=== PATIENT | male | born 1975 | race Caucasian/White ===

== ENCOUNTER 2022-06-28 08:37 | Outpatient (CLI) | payer OTHER, SELFPAY | END 2022-06-28 08:38 | disposition home or self-care (01) | PROVIDERS: PCP Internal Medicine; Visit Provider Internal Medicine | DX: Z00.00 Encounter for general adult medical examination without abnormal findings (principal); I10 Essential (primary) hypertension; Z13.6 Encounter for screening for cardiovascular disorders | CPT/HCPCS: 80053; 80061 ==

== ENCOUNTER 2022-08-17 12:08 | Outpatient (CLI) | payer OTHER, SELFPAY | END 2022-08-17 12:09 | disposition home or self-care (01) | LOC: OP CLINIC 12:09 | PROVIDERS: PCP Internal Medicine; Visit Provider Surgery | DX: Z12.11 Encounter for screening for malignant neoplasm of colon (principal); K63.5 Polyp of colon; K57.30 Diverticulosis of large intestine without perforation or abscess without bleeding | CPT/HCPCS: 45385; 88305; 99153; J1200; J2250; J3010 ==

== ENCOUNTER 2023-02-12 15:13 | Outpatient (CLI) | payer OTHER, SELFPAY | END 2023-02-12 15:14 | disposition home or self-care (01) | LOC: NFLDUCREF 15:14 | PROVIDERS: PCP Internal Medicine; Visit Provider Registered Nurse | DX: R10.9 Unspecified abdominal pain (principal) | CPT/HCPCS: 87086 ==

== ENCOUNTER 2023-02-12 16:11 | Inpatient (IN) | payer OTHER, SELFPAY ==
[2023-02-12 16:40] VITALS: BP 146/77; PULSE 109; RESP 22; TEMP 38.5; O2SAT 98; BMI 27.2
--- NOTE | 2023-02-12 17:19 | CRLHL7_ITS ---
For Patients: As a result of the Century Cures Act, medical imaging exams and procedure reports are released immediately into your electronic medical record. You may view this report before your referring provider. If you have questions, please contact your health care provider. INDICATION: Fever and lower abdominal pain TECHNIQUE: Axial images were obtained from the diaphragm to the pubic symphysis. Reformats were obtained in the coronal and sagittal plane. IV Contrast: 95 cc Isovue 370 Oral Contrast: None COMPARISON: None. FINDINGS: Lower chest: Unremarkable. Liver: Unremarkable. Normal in size and attenuation. No masses. Gallbladder and bile ducts: Unremarkable. No stones or inflammation. No biliary dilatation. Spleen: Unremarkable. Normal in size without mass. Pancreas: Unremarkable. No mass or inflammation. Adrenal glands: Unremarkable. No nodules. Kidneys: Unremarkable. No masses, stones, or hydronephrosis. Vasculature: Unremarkable. GI tract: The stomach is unremarkable. There are no dilated loops of large or small intestine. Appendix unremarkable. Underlying colonic diverticulosis with prominent inflammation adjacent to a proximal sigmoid diverticulum. Adjacent fascial thickening and trace free fluid. Trace bubbles of air within the sigmoid mesentery which appear to be just external to the inflamed diverticulum (series 2, image 127; series 4, image 52). No abscess seen. Pelvis: Unremarkable. Bones: Unremarkable for age. IMPRESSION: Acute diverticulitis proximal sigmoid colon. Small bubbles of air which appear to be extraluminal suggesting microperforation without evidence of abscess. Please note that all CT scans at this facility use dose modulation, iterative reconstruction, and/or weight-based dosing when appropriate to reduce radiation dose to as low as reasonably achievable. Dictated by Bonilla Chun MD @ 02/12/2023 6:28:00 PM (Electronically Signed)
[2023-02-12 17:56] LABS: Lactate Sepsis w/Reflex* 1.2 mmol/L (0.5-1.9)
[2023-02-12 18:15] LABS: Albumin* 4.5 g/dL (3.3-5.0); Chloride* 96 mmol/L (96-114)
[2023-02-12 18:16] LABS: Potassium* 3.9 mmol/L (3.6-5.1); Sodium* 133 mmol/L (135-149)
[2023-02-12 18:18] LABS: Creatinine* 0.9 mg/dL (0.5-1.5); Est. Creatinine Clearance* 110.39; Estimated Glomerular Filt Rate 107 ml/min
[2023-02-12 18:19] LABS: Alanine Aminotransferase* 27 U/L (4-50); Alkaline Phosphatase* 106 U/L (40-150); Anion Gap 11 mEq/L (7-15); Aspartate Amino Transferase* 35 U/L (12-35); Bilirubin Total* 1.4 mg/dL (0.1-1.5); Blood Urea Nitrogen* 16 mg/dL (5-24); Calcium* 9.4 mg/dL (8.4-10.6); Carbon Dioxide* 26 mmol/L (20-32); Glucose* 104 mg/dL (60-115); Total Protein* 7.8 g/dL (6.0-8.3)
[2023-02-12 18:22] LABS: C Reactive Protein* 5.7 mg/dL (0.5-1.0)
[2023-02-12] MEDS: 0.9 % SODIUM CHLORIDE 1000 ml 1,000 ML IV (18:25)
[2023-02-12 18:37] LABS: PCR FLU A Negative PCR FLU A (Negative); PCR FLU B Negative PCR FLU B (Negative); PCR RSV Negative PCR RSV (Negative)
[2023-02-12 18:39] LABS: SARS PCR* Negative SARS-CoV-2 (Negative)
[2023-02-12] MEDS: PIPERACILLIN/TAZOBACTAM 3.375 GM in 0.9 % SODIUM CHLORIDE Mini-bag 100 ML IVPB (19:03)
--- NOTE | 2023-02-12 19:16 | ED_ITS ---
HPI - General Adult General Date Seen: 02/12/23 Chief complaint: Abdominal Pain Stated complaint: Needs imaging sent from Time Seen by Provider: 02/12/23 17:14 Source: patient, RN notes reviewed and old records reviewed Mode of arrival: ambulatory Limitations: no limitations History of Present Illness HPI narrative: Patient is a 47-year-old generally healthy male who presents for evaluation of abdominal pain and fever. He was not actually aware of a fever, had gone to urgent care because of lower abdominal pain which started yesterday and has been gradually worsening. He was noted to be febrile at Urgent Care, white blood cell count was 12, UA showed a few red blood cells but was otherwise negative. He did have a little bit of dysuria yesterday although that is been improved today. He has not had cough for upper respiratory symptoms. He has had some nausea but no vomiting or diarrhea. He had a bowel movement on Sunday Related Data Home Medications Medication Instructions Recorded Confirmed fluticasone propionate 50 spray intranasal 06/28/22 06/28/22 mcg/actuation nasal spray,suspension Previous Rx's Medication Instructions Recorded albuterol sulfate 90 mcg/actuation 2 puff inhalation Q6-8H PRN Asthma 06/28/22 aerosol inhaler #8.5 grams fluticasone 250 mcg-salmeterol 50 1 inh inhalation BID SOB #60 ea 01/15/23 mcg/dose blistr powdr for inhalation (Advair Diskus) Allergies Allergy/AdvReac Type Severity Reaction Status Date / Time No Known Drug Allergies Allergy Verified 02/12/23 14:42 [facility] Surgical History History of vasectomy (02/15/21) ?Z98.52 - Vasectomy status (ICD-10) History of right inguinal hernia repair (2008) ?Z98.890 - Other specified postprocedural states (ICD-10) ?Z87.19 - Personal history of other diseases of the digestive system (ICD-10) Family History Mother Macular degeneration Daughter Seizure disorder Social History Narrative: to Tanvi. 3 children. Works at [employer]. Smoking Status: Former smoker Do you use any of these nicotine containing products: None Second hand tobacco smoke exposure: No How often do you have a drink containing alcohol: 2-4 times a month How often do you have six or more drinks on one occasion: Monthly AUDIT-C Alcohol total score: 4 Non-prescribed substance use: denies use Little interest or pleasure in doing things: not at all Feeling down, depressed, or hopeless: not at all service: No Exam Const: Vital Signs, click to edit/add: Vital Signs - 24 hr 02/12/23 16:40 Temperature 101.3 F H Pulse Rate [Pulse Oximeter] 109 H Respiratory Rate 22 Blood Pressure [Ri ght Upper Arm] 146/77 H Pulse Oximetry 98 Oxygen Delivery Me thod Room Air Course Vital Signs Vital signs: Initial Vital Signs Temperature 101.3 F H 02/12/23 16:40 Temperature Source Oral 02/12/23 16:40 Pulse Rate 109 H 02/12/23 16:40 Pulse Rhythm Regular 02/12/23 16:40 Respiratory Rate 22 02/12/23 16:40 Blood Pressure 146/77 H 02/12/23 16:40 Blood Pressure Mean 100 02/12/23 16:40 Blood Pressure Position Sitting 02/12/23 16:40 Pulse Oximetry 98 02/12/23 16:40 Oxygen Delivery Method Room Air 02/12/23 16:40 Vital Signs Temperature 101.3 F H 02/12/23 16:40 Pulse Rate 109 H 02/12/23 16:40 Respiratory Rate 22 02/12/23 16:40 Blood Pressure 146/77 H 02/12/23 16:40 Pulse Oximetry 98 02/12/23 16:40 Oxygen Delivery Method Room Air 02/12/23 16:40 Temperature 101.3 F H 02/12/23 16:40 Pulse Rate 109 H 02/12/23 16:40 Respiratory Rate 22 02/12/23 16:40 Blood Pressure 146/77 H 02/12/23 16:40 Pulse Oximetry 98 02/12/23 16:40 Oxygen Delivery Method Room Air 02/12/23 16:40 Medical Decision Making Lab Data Labs: Lab Results 02/12/23 Range/Units 17:41 Sodium 133 L (135-149) mmol/L Potassium 3.9 (3.6-5.1) mmol/L Chloride 96 (96-114) mmol/L Carbon Dioxide 26 (20-32) mmol/L Anion Gap 11 (7-15) mEq/L BUN 16 (5-24) mg/dL Creatinine 0.9 (0.5-1.5) mg/dL Estimated Creat Clear 110.39 Estimated GFR 107 ml/min Glucose 104 (60-115) mg/dL Lactate 1.2 (0.5-1.9) mmol/L Calcium 9.4 (8.4-10.6) mg/dL Total Bilirubin 1.4 (0.1-1.5) mg/dL Direct Bilirubin 0.0 (0.0-0.5) mg/dL AST 35 (12-35) U/L ALT 27 (4-50) U/L Alkaline Phosphatase 106 (40-150) U/L C-Reactive Protein 5.7 H (0.5-1.0) mg/dL Total Protein 7.8 (6.0-8.3) g/dL Albumin 4.5 (3.3-5.0) g/dL SARS-CoV-2 (PCR) Negative SARS-CoV-2 (Negative) Influenza Type A (PCR) Negative PCR FLU A (Negative) Influenza Type B (PCR) Negative PCR FLU B (Negative) RSV (PCR) Negative PCR RSV (Negative) Discharge Plan Discharge Clinical Impression: Diverticulitis of colon with perforation Patient Disposition: Admitted As Observation Condition: Stable
--- NOTE | 2023-02-12 19:26 | ED.GENADULT ---
HPI - General Adult General Date Seen: 02/12/23 Chief complaint: Abdominal Pain Stated complaint: Needs imaging sent from Time Seen by Provider: 02/12/23 17:14 Source: patient, RN notes reviewed and old records reviewed Mode of arrival: ambulatory Limitations: no limitations History of Present Illness HPI narrative: Patient is a 47-year-old male who presents for evaluation of lower abdominal pain and fever. He initially went to urgent care because of abdominal pain which started yesterday. He did have some dysuria yesterday although it is less prominent today. No hematuria. Pain has been gradual in onset and worsening since yesterday. He says that he held off on eating earlier today but he is now pretty hungry. He has had a little nausea no vomiting. He had a normal bowel movement on Sunday, 2 days ago, and since then he has felt like it has been difficult to go. He does not have a history of kidney stones, no prior abdominal surgeries, no history of diverticulitis. General health is good. He went to Urgent Care was noted to have a fever, he was not aware of fever previously. His white blood cell count was mildly elevated at 12, urine was relatively unremarkable aside from a few red blood cells. He was sent here for further evaluation. Related Data Home Medications Medication Instructions Recorded Confirmed fluticasone propionate 50 spray intranasal 06/28/22 06/28/22 mcg/actuation nasal spray,suspension Previous Rx's Medication Instructions Recorded albuterol sulfate 90 mcg/actuation 2 puff inhalation Q6-8H PRN Asthma 06/28/22 aerosol inhaler #8.5 grams fluticasone 250 mcg-salmeterol 50 1 inh inhalation BID SOB #60 ea 01/15/23 mcg/dose blistr powdr for inhalation (Advair Diskus) Allergies Allergy/AdvReac Type Severity Reaction Status Date / Time No Known Drug Allergies Allergy Verified 02/12/23 14:42 Review of Systems Status of ROS: Reports: 10 or more systems reviewed and unremarkable except as noted in History and below PFSH PFS Surgical History History of vasectomy (02/15/21) ?Z98.52 - Vasectomy status (ICD-10) History of right inguinal hernia repair (2008) ?Z98.890 - Other specified postprocedural states (ICD-10) ?Z87.19 - Personal history of other diseases of the digestive system (ICD-10) Family History Mother Macular degeneration Daughter Seizure disorder Social History Narrative: to Tanvi. 3 children. Works at [employer]. Smoking Status: Former smoker Do you use any of these nicotine containing products: None Second hand tobacco smoke exposure: No How often do you have a drink containing alcohol: 2-4 times a month How often do you have six or more drinks on one occasion: Monthly AUDIT-C Alcohol total score: 4 Non-prescribed substance use: denies use Little interest or pleasure in doing things: not at all Feeling down, depressed, or hopeless: not at all service: No Exam Narrative: Exam Narrative: Vital signs as noted above. In general, an alert, well-appearing patient. Head: Normocephalic, atraumatic. Eyes: Pupils are equal reactive. Extraocular movements are full. Conjunctivae are normal. ENT: Mucous membranes are moist. Neck: Supple without lymphadenopathy. Heart: Regular rate and rhythm. No murmur or rub. Lungs: Clear bilaterally. No increased work of breathing, crackles or wheezes. No CVA tenderness. Abdomen: He has mild lower abdominal tenderness without rebound guarding or rigidity. Bowel sounds are present. Extremities: Well perfused. No edema. No calf tenderness. Pulses intact. Neurologic: Patient is alert and oriented to person and place. Speech is fluent. Face is symmetric. Moves all extremities equally. Affect: Normal. Skin: Warm and dry. Well perfused. Const: Vital Signs, click to edit/add: Vital Signs - 24 hr 02/12/23 16:40 Temperature 101.3 F H Pulse Rate [Pulse Oximeter] 109 H Respiratory Rate 22 Blood Pressure [Ri ght Upper Arm] 146/77 H Pulse Oximetry 98 Oxygen Delivery Me thod Room Air Documenting provider has reviewed patient's vital signs: yes Course Course ED Course: Following initial evaluation, I reviewed his records from Urgent Care noting his white blood cell count and UA. I ordered additional labs as well as a CT of the abdomen. His metabolic panel is unremarkable, lactate is 1.2. CRP is elevated at 5.7. COVID negative. CT scan by my review showed some inflammatory changes by the sigmoid colon, final radiology read is as follows:FINDINGS: Lower chest: Unremarkable. Liver: Unremarkable. Normal in size and attenuation. No masses. Gallbladder and bile ducts: Unremarkable. No stones or inflammation. No biliary dilatation. Spleen: Unremarkable. Normal in size without mass. Pancreas: Unremarkable. No mass or inflammation. Adrenal glands: Unremarkable. No nodules. Kidneys: Unremarkable. No masses, stones, or hydronephrosis. Vasculature: Unremarkable. GI tract: The stomach is unremarkable. There are no dilated loops of large or small intestine. Appendix unremarkable. Underlying colonic diverticulosis with prominent inflammation adjacent to a proximal sigmoid diverticulum. Adjacent fascial thickening and trace free fluid. Trace bubbles of air within the sigmoid mesentery which appear to be just external to the inflamed diverticulum (series 2, image 127; series 4, image 52). No abscess seen. Pelvis: Unremarkable. Bones: Unremarkable for age. IMPRESSION: Acute diverticulitis proximal sigmoid colon. Small bubbles of air which appear to be extraluminal suggesting microperforation without evidence of abscess. Patient has not needed anything for pain or nausea while here. He did have a L of normal saline. I consulted Dr. Arce, her recommendation is for hospitalization on IV antibiotics. He is given Zosyn 3.375 g here in the emergency department, Dr. Aguero has accepted him to the hospitalist service. Hemodynamically stable without further complaints. Vital Signs Vital signs: Initial Vital Signs Temperature 101.3 F H 02/12/23 16:40 Temperature Source Oral 02/12/23 16:40 Pulse Rate 109 H 02/12/23 16:40 Pulse Rhythm Regular 02/12/23 16:40 Respiratory Rate 22 02/12/23 16:40 Blood Pressure 146/77 H 02/12/23 16:40 Blood Pressure Mean 100 02/12/23 16:40 Blood Pressure Position Sitting 02/12/23 16:40 Pulse Oximetry 98 02/12/23 16:40 Oxygen Delivery Method Room Air 02/12/23 16:40 Vital Signs Temperature 101.3 F H 02/12/23 16:40 Pulse Rate 109 H 02/12/23 16:40 Respiratory Rate 22 02/12/23 16:40 Blood Pressure 146/77 H 02/12/23 16:40 Pulse Oximetry 98 02/12/23 16:40 Oxygen Delivery Method Room Air 02/12/23 16:40 Temperature 101.3 F H 02/12/23 16:40 Pulse Rate 109 H 02/12/23 16:40 Respiratory Rate 22 02/12/23 16:40 Blood Pressure 146/77 H 02/12/23 16:40 Pulse Oximetry 98 02/12/23 16:40 Oxygen Delivery Method Room Air 02/12/23 16:40 Medical Decision Making Lab Data Labs: Lab Results 02/12/23 Range/Units 17:41 Sodium 133 L (135-149) mmol/L Potassium 3.9 (3.6-5.1) mmol/L Chloride 96 (96-114) mmol/L Carbon Dioxide 26 (20-32) mmol/L Anion Gap 11 (7-15) mEq/L BUN 16 (5-24) mg/dL Creatinine 0.9 (0.5-1.5) mg/dL Estimated Creat Clear 110.39 Estimated GFR 107 ml/min Glucose 104 (60-115) mg/dL Lactate 1.2 (0.5-1.9) mmol/L Calcium 9.4 (8.4-10.6) mg/dL Total Bilirubin 1.4 (0.1-1.5) mg/dL Direct Bilirubin 0.0 (0.0-0.5) mg/dL AST 35 (12-35) U/L ALT 27 (4-50) U/L Alkaline Phosphatase 106 (40-150) U/L C-Reactive Protein 5.7 H (0.5-1.0) mg/dL Total Protein 7.8 (6.0-8.3) g/dL Albumin 4.5 (3.3-5.0) g/dL SARS-CoV-2 (PCR) Negative SARS-CoV-2 (Negative) Influenza Type A (PCR) Negative PCR FLU A (Negative) Influenza Type B (PCR) Negative PCR FLU B (Negative) RSV (PCR) Negative PCR RSV (Negative) Discharge Plan Discharge Prescriptions: No Action fluticasone propionate 50 mcg/actuation spray,suspension intranasal albuterol sulfate 90 mcg/actuation HFA aerosol inhaler 2 puff inhalation Q6-8H PRN (Reason: Asthma) Qty: 8.5 2RF fluticasone propion-salmeterol [Advair Diskus] 250-50 mcg/dose blister with device 1 inh inhalation BID Qty: 60 5RF Follow Up/Referrals: Loco Munoz MD [Primary Care Provider] -
--- NOTE | 2023-02-12 19:41 | ED.NURSE ---
Report given to m/s nurse. All questions answered. Pt in stable condition upon transfer. All belongings sent with pt to med/surg.
[2023-02-12 20:06] VITALS: BP 139/84; PULSE 108; RESP 18; TEMP 37.5; O2SAT 95; BMI 28.5
[2023-02-12] MEDS: LACTATED RINGERS 1000 ML 1,000 ML IV (21:20)
[2023-02-12] MEDS: SODIUM CHLORIDE 0.9 % (FLUSH) 10 ML SYRINGE 5 ML IVF (21:55)
--- NOTE | 2023-02-12 21:58 | P.IMHP_ITS ---
Hospitalist- H&P: HPI History of Present Illness Date Seen: 02/12/23 Chief complaint: Needs imaging sent from Narrative: Hugh Koch is a 47 year old male with asthma who is admitted with a 1 day history of lower abdominal pain. He was in his usual state of good health until shortly after lunch yesterday about 1:00 p.m. when he had onset of constant low abdominal pain. He localizes this to the suprapubic area. He did note that he had discomfort with urination. He has been having small bowel movements since this occurred. Not diarrhea or bloody. He also noted a fever. He has had no previous abdominal problems. He has had previous umbilical and inguinal hernia repair. No problems with surgery, anesthesia, bleeding or clotting. In July of 2022 he underwent colonoscopy showing diverticulosis. He had 2 polyps were removed 1 was a tubular adenoma. Review of Systems Narrative: He reports no other symptoms of illness, cold, cough, sore throat, chest pain, nausea, vomiting. No gastrointestinal or bowel problems prior to the last day [facility] Medical History (Updated 02/12/23 @ 22:07 by Frederick Aguero MD) Essential hypertension ?I10 - Essential (primary) hypertension (ICD-10) Allergic rhinitis ?J30.9 - Allergic rhinitis, unspecified (ICD-10) Mild persistent asthma ?J45.30 - Mild persistent asthma, uncomplicated (ICD-10) Surgical History History of vasectomy (02/15/21) ?Z98.52 - Vasectomy status (ICD-10) History of right inguinal hernia repair (2008) ?Z98.890 - Other specified postprocedural states (ICD-10) ?Z87.19 - Personal history of other diseases of the digestive system (ICD-10) Family History Mother Macular degeneration Daughter Seizure disorder Social History (Updated 02/12/23 @ 22:04 by Frederick Aguero MD) Narrative: to Tanvi. Four children. Works from home for [employer] Children ages 3, 6, 9, 11. He does not smoke. He drinks 3-5 alcoholic beverages on Fridays and Saturdays and rarely during the other days of the week. No recreational drug use Smoking Status: Former smoker Do you use any of these nicotine containing products: None Second hand tobacco smoke exposure: No How often do you have a drink containing alcohol: 2-4 times a month How often do you have six or more drinks on one occasion: Monthly AUDIT-C Alcohol total score: 4 Non-prescribed substance use: denies use Little interest or pleasure in doing things: not at all Feeling down, depressed, or hopeless: not at all service: No Meds Home Medications and Allergies Home Medications Medication Instructions Recorded Confirmed Type fluticasone propionate 50 spray intranasal 06/28/22 06/28/22 History mcg/actuation nasal spray,suspension Allergies Allergy/AdvReac Type Severity Reaction Status Date / Time Fish Containing Products Allergy Swelling Verified 02/12/23 21:53 of Lip/Tongue/Throat Exam Narrative: Exam Narrative: He is alert and appears in no distress. Eyes normal. Sclerae nonicteric. Mucous membranes are dry. Neck is supple without mass or adenopathy. Respirations are clear to auscultation. Cardiovascular: S1, S2, regular rate and rhythm. No murmur gallop or rub. Abdomen: Bowel sounds active. Abdomen is soft in the upper abdomen. Has moderate tenderness and guarding below the umbilicus in the midline extending out into both right and left lower quadrants. No mass. External genitalia normal. No rash. Extremities with good perfusion and intact peripheral pulses. No edema. Const: Vital Signs, click to edit/add: Vital Signs - 24 hr 02/12/23 16:40 Temperature 101.3 F H Pulse Rate [Pulse Oximeter] 109 H Respiratory Rate 22 Blood Pressure [Ri ght Upper Arm] 146/77 H Pulse Oximetry 98 Oxygen Delivery Me thod Room Air Documenting provider has reviewed patient's vital signs: yes Hospitalist - H&P: Result Labs Labs: BMP 02/12/23 17:41 Sodium 133 L Potassium 3.9 Chloride 96 Carbon Dioxide 26 BUN 16 Creatinine 0.9 Glucose 104 Calcium 9.4 Liver Function 02/12/23 Range/Units 17:41 Total Bilirubin 1.4 (0.1-1.5) mg/dL Direct Bilirubin 0.0 (0.0-0.5) mg/dL AST 35 (12-35) U/L ALT 27 (4-50) U/L Alkaline Phosphatase 106 (40-150) U/L Albumin 4.5 (3.3-5.0) g/dL Imaging CT scan - abdomen: Radiologist's impression: INDICATION: Fever and lower abdominal pain TECHNIQUE: Axial images were obtained from the diaphragm to the pubic symphysis. Reformats were obtained in the coronal and sagittal plane. IV Contrast: 95 cc Isovue 370 Oral Contrast: None COMPARISON: None. FINDINGS: Lower chest: Unremarkable. Liver: Unremarkable. Normal in size and attenuation. No masses. Gallbladder and bile ducts: Unremarkable. No stones or inflammation. No biliary dilatation. Spleen: Unremarkable. Normal in size without mass. Pancreas: Unremarkable. No mass or inflammation. Adrenal glands: Unremarkable. No nodules. Kidneys: Unremarkable. No masses, stones, or hydronephrosis. Vasculature: Unremarkable. GI tract: The stomach is unremarkable. There are no dilated loops of large or small intestine. Appendix unremarkable. Underlying colonic diverticulosis with prominent inflammation adjacent to a proximal sigmoid diverticulum. Adjacent fascial thickening and trace free fluid. Trace bubbles of air within the sigmoid mesentery which appear to be just external to the inflamed diverticulum (series 2, image 127; series 4, image 52). No abscess seen. Pelvis: Unremarkable. Bones: Unremarkable for age. IMPRESSION: Acute diverticulitis proximal sigmoid colon. Small bubbles of air which appear to be extraluminal suggesting microperforation without evidence of abscess. Assessment and Plan Assessment and plan (1) Diverticulitis of colon with perforation: Problem comment: Admit for IV fluids, NPO, IV antibiotics, surgical consult. Status: Acute Plan Admit for IV antibiotics and IV fluids. Total time spent today is 60 minutes, 40 minutes in coordination of care and discussing with patient and other providers ongoing evaluation management of diverticulitis with micro perforation
[2023-02-12] MEDS: LACTATED RINGERS 1000 ML 1,000 ML 125 ML IV (22:33)
[2023-02-12 22:52] VITALS: TEMP 37.3
[2023-02-12] MEDS: ACETAMINOPHEN 325 MG TABLET 650 MG PO (22:52)
[2023-02-12 23:00] VITALS: BP 134/82; PULSE 94; RESP 21; TEMP 37.3; O2SAT 96
[2023-02-13] VITALS (7 sets, daily range): BP systolic 126–158; BP diastolic 72–90; PULSE 66–87; RESP 16–18; TEMP 36.4–36.9; O2SAT 95–97
[2023-02-13] MEDS: PIPERACILLIN/TAZOBACTAM 3.375 GM in 0.9 % SODIUM CHLORIDE Mini-bag 100 ML IVPB ×4 (01:23→19:07)
[2023-02-13] MEDS: 0.9 % SODIUM CHLORIDE 250 ml IV (02:30)
[2023-02-13 07:06] LABS: Basophils Absolute Auto 0.02 K/uL (0.00-0.30); Basophils Percent Auto 0.2 % (0.0-3.0); Eosinophils Absolute Auto 0.06 K/uL (0.00-0.50); Eosinophils Percent Auto 0.6 % (0.0-7.0); Hematocrit 40.1 % (37.0-53.0); Hemoglobin* 13.8 gm/dL (13.5-17.5); Immature Granulocytes Abs Auto 0.01 K/uL (0.00-0.30); Immature Granulocytes Pct Auto 0.1 %; Lymphocytes Percent Auto 10.3 % (20-44); Mean Corpuscular HGB Conc 34 gm/dL (32-36); Mean Corpuscular Hemoglobin 32 pg (26-34); Mean Corpuscular Volume 92 fL (80-100); Monocytes Percent Auto 11.9 % (0.0-11.0); Neutrophils Percent Auto 76.9 % (42.0-72.0); Platelet Count* 251 K/uL (140-440); RDW Coefficient of Variation % 11.6 % (11.5-15.5); Red Blood Count 4.36 m/uL (4.30-5.90); White Blood Count* 10.01 K/uL (4.50-11.00)
[2023-02-13 07:11] LABS: Slide Review Reflex No
[2023-02-13 07:31] LABS: Chloride* 104 mmol/L (96-114); Potassium* 3.8 mmol/L (3.6-5.1); Sodium* 137 mmol/L (135-149)
[2023-02-13 07:34] LABS: Anion Gap 6 mEq/L (7-15); Blood Urea Nitrogen* 14 mg/dL (5-24); Carbon Dioxide* 27 mmol/L (20-32); Creatinine* 0.9 mg/dL (0.5-1.5); Est. Creatinine Clearance* 109.23; Estimated Glomerular Filt Rate 107 ml/min
[2023-02-13 07:35] LABS: Calcium* 9.1 mg/dL (8.4-10.6); Glucose* 112 mg/dL (60-115)
--- NOTE | 2023-02-13 07:50 | PC.NURSE ---
Patient arrived in Med/Surg at 194. Alert and oriented. NPO since arrival. Tolerating ice chips. Independent with transfers and ambulating. Temperature elevated to 99.5. Reported pain rated between 3-6/10 in his low abdomen near his belt-line. Reported pain was 5-6/10 when he had to urinate and decrease between 3-4 after urination.
--- NOTE | 2023-02-13 08:02 | P.GSCN_ITS ---
History of Present Illness Consult details Date Seen: 02/13/23 Consult date: 02/13/23 Narrative: The patient is a 48-year-old male who presents to the ER yesterday with abdominal pain. He states that this started Sunday evening. At he thought this was because he was constipated however he did have a bowel movement. He noticed some pain with urination radiating down to his penis and testicles bilaterally. He states that the pain comes and goes. He does not feel significantly better today than last evening. No nausea. He states he normally has bowel movements 2 to 3 times a day. They are not excessively firm nor are they loose. He does not take a fiber supplement. He had a colonoscopy in July of 2022. This showed diverticular disease and a small tubular adenoma. He states that the pain has not been worse with movement. He did have a fever last night in the emergency department of up to 101.3. [facility] Medical History (Updated 02/12/23 @ 22:07 by Frederick Aguero MD) Essential hypertension ?I10 - Essential (primary) hypertension (ICD-10) Allergic rhinitis ?J30.9 - Allergic rhinitis, unspecified (ICD-10) Mild persistent asthma ?J45.30 - Mild persistent asthma, uncomplicated (ICD-10) Surgical History History of vasectomy (02/15/21) ?Z98.52 - Vasectomy status (ICD-10) History of right inguinal hernia repair (2008) ?Z98.890 - Other specified postprocedural states (ICD-10) ?Z87.19 - Personal history of other diseases of the digestive system (ICD-10) Family History Mother Macular degeneration Daughter Seizure disorder Social History (Updated 02/12/23 @ 22:04 by Frederick Aguero MD) Narrative: to Tanvi. Four children. Works from home for [employer]. Children ages 3, 6, 9, 11. He does not smoke. He drinks 3-5 alcoholic beverages on Fridays and Saturdays and rarely during the other days of the week. No recreational drug use What is your current living situation?: I presently have a place to live Problems where you live: no known problems Problems where you live details: n/a In the past 12 months, utilities in danger of being shut off: no In past 12 months, lack of transportation kept you from medical appts, meetings, work, or getting things needed for daily living: no In the past 12 mos, have been you worried that your food would run out before you had money to buy more?: never true In the past 12 mos, the food you bought just didn't last and you didn't have money to buy more?: never true Highest level of school completed/degree received: Bachelor's degree Smoking Status: Former smoker Do you use any of these nicotine containing products: None Second hand tobacco smoke exposure: No How often do you have a drink containing alcohol: 2-4 times a month How often do you have six or more drinks on one occasion: Monthly AUDIT-C Alcohol total score: 4 Non-prescribed substance use: denies use Caffeine: Yes (coffee) How often does anyone, including family, friends and others, physically hurt you : never How often does anyone, including family, friends and others, insult or talk down to you: never How often does anyone, including family, friends and others, threaten you with harm: never How often does anyone, including family, friends and others, scream or curse at you: never Little interest or pleasure in doing things: not at all Feeling down, depressed, or hopeless: not at all service: No Meds Home Medications and Allergies Home Medications Medication Instructions Recorded Confirmed Type fluticasone propionate 50 1 spray intranasal DAILY 06/28/22 02/13/23 History mcg/actuation nasal spray,suspension albuterol sulfate 90 mcg/actuation 2 puff inhalation Q6H PRN Asthma 02/13/23 02/13/23 History aerosol inhaler Allergies Allergy/AdvReac Type Severity Reaction Status Date / Time Fish Containing Products Allergy Swelling Verified 02/12/23 21:53 of Lip/Tongue/Throat Exam Const: Vital Signs, click to edit/add: Vital Signs - 24 hr 02/12/23 16:40 02/12/23 20:06 02/12/23 22:52 Temperature 101.3 F H 99.5 F 99.2 F Pulse Rate [Pulse Oximeter] 109 H 108 H Respiratory Rate 22 18 Blood Pressure [Le ft Arm] 139/84 Blood Pressure [Ri ght Upper Arm] 146/77 H Pulse Oximetry 98 95 Oxygen Delivery Me thod Room Air Room Air 02/12/23 23:00 02/13/23 01:41 02/13/23 02:48 Temperature 99.2 F 97.5 F L 97.5 F L Pulse Rate [Pulse Oximeter] 94 87 Respiratory Rate 21 18 Blood Pressure [Le ft Arm] 134/82 129/72 Blood Pressure [Ri ght Upper Arm] Pulse Oximetry 96 96 Oxygen Delivery Me thod Room Air Results Labs Labs: Abnormal lab results 02/12/23 02/13/23 Range/Units 17:41 06:47 Neut % (Auto) 76.9 H (42.0-72.0) % Lymph % (Auto) 10.3 L (20-44) % [place] % (Auto) 11.9 H (0.0-11.0) % Neut # (Auto) 7.70 H (1.7-7.0) K/uL [place] # (Auto) 1.20 H (0.00-0.90) K/UL Sodium 133 L (135-149) mmol/L Anion Gap 6 L (7-15) mEq/L C-Reactive Protein 5.7 H 18.0 H (0.5-1.0) mg/dL Diabetes panel 02/12/23 02/13/23 Range/Units 17:41 06:47 Sodium 133 L 137 (135-149) mmol/L Potassium 3.9 3.8 (3.6-5.1) mmol/L Chloride 96 104 (96-114) mmol/L Carbon Dioxide 26 27 (20-32) mmol/L BUN 16 14 (5-24) mg/dL Creatinine 0.9 0.9 (0.5-1.5) mg/dL Glucose 104 112 (60-115) mg/dL Calcium 9.4 9.1 (8.4-10.6) mg/dL AST 35 (12-35) U/L ALT 27 (4-50) U/L Alkaline Phosphatase 106 (40-150) U/L Total Protein 7.8 (6.0-8.3) g/dL Albumin 4.5 (3.3-5.0) g/dL Calcium panel 02/12/23 02/13/23 Range/Units 17:41 06:47 Calcium 9.4 9.1 (8.4-10.6) mg/dL Albumin 4.5 (3.3-5.0) g/dL Pituitary panel 02/12/23 02/13/23 Range/Units 17:41 06:47 Sodium 133 L 137 (135-149) mmol/L Potassium 3.9 3.8 (3.6-5.1) mmol/L Chloride 96 104 (96-114) mmol/L Carbon Dioxide 26 27 (20-32) mmol/L BUN 16 14 (5-24) mg/dL Creatinine 0.9 0.9 (0.5-1.5) mg/dL Glucose 104 112 (60-115) mg/dL Calcium 9.4 9.1 (8.4-10.6) mg/dL Adrenal panel 02/12/23 02/13/23 Range/Units 17:41 06:47 Sodium 133 L 137 (135-149) mmol/L Potassium 3.9 3.8 (3.6-5.1) mmol/L Chloride 96 104 (96-114) mmol/L Carbon Dioxide 26 27 (20-32) mmol/L BUN 16 14 (5-24) mg/dL Creatinine 0.9 0.9 (0.5-1.5) mg/dL Glucose 104 112 (60-115) mg/dL Calcium 9.4 9.1 (8.4-10.6) mg/dL Total Bilirubin 1.4 (0.1-1.5) mg/dL AST 35 (12-35) U/L ALT 27 (4-50) U/L Alkaline Phosphatase 106 (40-150) U/L Total Protein 7.8 (6.0-8.3) g/dL Albumin 4.5 (3.3-5.0) g/dL All other labs normal. Imaging Abdomen CT scan report/results: report reviewed and image reviewed Additional studies: IMPRESSION: Acute diverticulitis proximal sigmoid colon. Small bubbles of air which appear to be extraluminal suggesting microperforation without evidence of abscess. Please note that all CT scans at this facility use dose modulation, iterative reconstruction, and/or weight-based dosing when appropriate to reduce radiation dose to as low as reasonably achievable. Dictated by Bonilla Chun MD @ 02/12/2023 6:28:00 PM Assessment and Plan Assessment and plan (1) Diverticulitis of colon with perforation: Problem comment: Admit for IV fluids, NPO, IV antibiotics, surgical consult. Status: Acute Plan The patient is a 48-year-old male with diverticulitis with perforation which currently appears to be contained. He and I discussed diverticular disease as well as management of diverticulitis. He understands that the goal is to avoid emergency surgery and stoma creation if possible. We will do that with bowel rest and IV antibiotics. Today he does already seemed to be improved clinically. Since he is not taking any pain meds it is reasonable that he could have a clear liquid diet, however if his pain worsens this should be stopped. I discussed with him that after discharge he will likely go home on IV antibiotics. If this completely resolves then he may not need to have elective surgery going forward unless he has recurrence. If he does not get better during his hospitalization we will have to reassess for possible abscess formation which might require drainage. Certainly if he develops worsening pain, fever, tachycardia then he may require laparotomy and colectomy with sheri loco. Recommend continuing IV antibiotics, clear liquid diet as long as pain is improved and trending labs. Potentially discharge home tomorrow if he continues to improve clinically.
[2023-02-13] MEDS: FLUTICASONE PROPIONATE NASAL 1 SPRAY NOSTRIL-B ×2 (08:56→21:02)
[2023-02-13] MEDS: ACETAMINOPHEN 325 MG TABLET 650 MG PO ×3 (08:56→16:45)
[2023-02-13] MEDS: LACTATED RINGERS 1000 ML 1,000 ML 125 ML IV ×2 (08:56→21:01)
--- NOTE | 2023-02-13 15:18 | P.IMPN_ITS ---
Progress Note: A&P Assessment and plan (1) Diverticulitis of colon with perforation: Problem details: Appreciate Dr. Arce's recommendations. Advance to clears. Monitor with labs tomorrow. If doing well, will need PICC for 7-10 days of ertapenem as outpatient. Status: Acute (2) Essential hypertension: Problem details: Good control. Not on any medications for this. Status: Chronic (3) Mild persistent asthma: Problem details: Good control. Continue albuterol. Status: Chronic Plan VTE prophylaxis: ambulate frequently Subjective Time Seen by Provider: 10:19 Date Seen: 02/13/23 Interval history: Hugh is less painful today. Pain is in the suprapubic area. Denies nausea. Has been NPO. His , Tanvi, was also in the room. Questions were answered. I spoke with Dr. Arce after she saw him this morning. She was okay with him advancing to clears. Exam Narrative: Exam Narrative: General: No acute distress. Awake, alert, oriented. No pallor. No jaundice. Oropharynx: Clear. Mucous membranes moist. Cardiovascular: Regular rate and rhythm. No murmurs, gallops, or rubs. Respiratory: Clear to auscultation bilaterally. No wheezes or crackles. Abdomen: Bowel sounds present. Soft, nondistended, mildly tender in the suprapubic area without rebound tenderness or guarding. Extremities: No pedal edema. Const: Vital Signs, click to edit/add: Vital Signs - 24 hr 02/12/23 16:40 02/12/23 20:06 02/12/23 22:52 Temperature 101.3 F H 99.5 F 99.2 F Pulse Rate [Pulse Oximeter] 109 H 108 H Respiratory Rate 22 18 Blood Pressure [Le ft Arm] 139/84 Blood Pressure [Ri ght Upper Arm] 146/77 H Pulse Oximetry 98 95 Oxygen Delivery Me thod Room Air Room Air 02/12/23 23:00 02/13/23 01:41 02/13/23 02:48 Temperature 99.2 F 97.5 F L 97.5 F L Pulse Rate [Pulse Oximeter] 94 87 Respiratory Rate 21 18 Blood Pressure [Le ft Arm] 134/82 129/72 Blood Pressure [Ri ght Upper Arm] Pulse Oximetry 96 96 Oxygen Delivery Me thod Room Air 02/13/23 07:00 02/13/23 11:00 Temperature 98.4 F 97.5 F L Pulse Rate [Pulse Oximeter] 82 70 Respiratory Rate 16 16 Blood Pressure [Le ft Arm] 126/76 130/78 Blood Pressure [Ri ght Upper Arm] Pulse Oximetry 96 95 Oxygen Delivery Me thod Room Air Room Air Labs Labs: Laboratory Results - last 24 hr 02/12/23 02/13/23 17:41 06:47 WBC 10.01 RBC 4.36 Hgb 13.8 Hct 40.1 MCV 92 MCH 32 MCHC 34 RDW Coeff of Khurram 11.6 Plt Count 251 Neut % (Auto) 76.9 H Lymph % (Auto) 10.3 L [place] % (Auto) 11.9 H Eos % (Auto) 0.6 Baso % (Auto) 0.2 Neut # (Auto) 7.70 H Lymph # (Auto) 1.00 [place] # (Auto) 1.20 H Eos # (Auto) 0.06 Baso # (Auto) 0.02 Abs Immat Gran (auto) 0.01 Imm/Tot Granulo (auto) 0.1 Sodium 133 L 137 Potassium 3.9 3.8 Chloride 96 104 Carbon Dioxide 26 27 Anion Gap 11 6 L BUN 16 14 Creatinine 0.9 0.9 Estimated Creat Clear 110.39 109.23 Estimated GFR 107 107 Glucose 104 112 Lactate 1.2 Calcium 9.4 9.1 Total Bilirubin 1.4 Direct Bilirubin 0.0 AST 35 ALT 27 Alkaline Phosphatase 106 C-Reactive Protein 5.7 H 18.0 H Total Protein 7.8 Albumin 4.5 SARS-CoV-2 (PCR) Negative SARS-CoV-2 Influenza Type A (PCR) Negative PCR FLU A Influenza Type B (PCR) Negative PCR FLU B RSV (PCR) Negative PCR RSV
--- NOTE | 2023-02-13 16:04 | PC.NURSE ---
Pt alert, oriented, and pleasant. Pt independent in room, continent of bowel and bladder. Pt reported pain in lower abdomen as 4-5/10 during shift, managed with tylenol per MAR with verbalized improvement. Bowel sounds hyperactive in all quadrants. Pt advanced from NPO to clear liquid diet per MD. Pt tolerating well, reported 1 loose BM after initial clear liquid intake with no increase of abdominal pain. Pt denies loose stool since 1st instance. VSS, afebrile, family at bedside during shift.
[2023-02-13] MEDS: SODIUM CHLORIDE 0.9 % (FLUSH) 10 ML SYRINGE 5 ML IVF (21:10)
[2023-02-14] MEDS: PIPERACILLIN/TAZOBACTAM 3.375 GM in 0.9 % SODIUM CHLORIDE Mini-bag 100 ML IVPB ×2 (00:57→06:04)
[2023-02-14] MEDS: 0.9 % SODIUM CHLORIDE 250 ml IV (00:57)
[2023-02-14] MEDS: ACETAMINOPHEN 325 MG TABLET 650 MG PO (01:03)
[2023-02-14 02:50] VITALS: BP 125/76; PULSE 72; RESP 16; TEMP 36.8; O2SAT 97
--- NOTE | 2023-02-14 05:49 | PC.NURSE ---
[id number] Pt slept well during night, rated LLQ pain 3-5/10, prn tylenol administered with some relief. pt tolerating clear diet, denies N/V. hesitant to take in too much clears due to diarrhea that pt stated he had earlier in the day with trying, no BM this shift. IND in room, tolerating activity well.
[2023-02-14] MEDS: LACTATED RINGERS 1000 ML 1,000 ML 125 ML IV (06:04)
[2023-02-14 06:39] LABS: Basophils Absolute Auto 0.04 K/uL (0.00-0.30); Basophils Percent Auto 0.6 % (0.0-3.0); Eosinophils Absolute Auto 0.23 K/uL (0.00-0.50); Eosinophils Percent Auto 3.6 % (0.0-7.0); Hemoglobin* 13.1 gm/dL (13.5-17.5); Lymphocytes Percent Auto 19.3 % (20-44); Mean Corpuscular HGB Conc 34 gm/dL (32-36); Mean Corpuscular Hemoglobin 31 pg (26-34); Mean Corpuscular Volume 93 fL (80-100); Monocytes Percent Auto 11.6 % (0.0-11.0); Neutrophils Absolute Auto 4.14 K/uL (1.7-7.0); Neutrophils Percent Auto 64.9 % (42.0-72.0); Platelet Count* 241 K/uL (140-440); RDW Coefficient of Variation % 11.7 % (11.5-15.5); Red Blood Count 4.19 m/uL (4.30-5.90); White Blood Count* 6.38 K/uL (4.50-11.00)
[2023-02-14 06:56] LABS: Slide Review Reflex No
[2023-02-14 07:12] LABS: C Reactive Protein* 17.4 mg/dL (0.5-1.0)
[2023-02-14 08:42] VITALS: BP 138/85; PULSE 65; RESP 16; TEMP 36.1; O2SAT 96
--- NOTE | 2023-02-14 09:12 | PM.IMPN1 ---
Progress Note: A&P Assessment and plan (1) Diverticulitis of colon with perforation: Problem details: - 02/13/[address] Arce's recommendations. Advance to clears. Monitor with labs tomorrow. If doing well, will need PICC for 7-10 days of ertapenem as outpatient. - 02/14 Doing well. Advancing diet to fulls. Getting PICC today. If tolerates fulls, may be able to advance to low residue and discharge home either later today or tomorrow morning for outpatient daily ertapenem. Status: Acute (2) Essential hypertension: Problem details: Fair control. Not on any medications for this. Status: Chronic (3) Mild persistent asthma: Problem details: Good control. Continue albuterol prn. Status: Chronic Plan VTE prophylaxis: ambulate frequently Subjective Time Seen by Provider: 08:20 Date Seen: 02/14/23 Interval history: Hugh is feeling better today. His pain has improved. He tolerated a clear liquid diet last night, but has had more liquidy stools, so held off on clears this morning. Denies any BRBPR or melena. No fevers overnight. Exam Narrative: Exam Narrative: General: No acute distress. Awake, alert, oriented. No pallor. No jaundice. Oropharynx: Clear. Mucous membranes moist. Cardiovascular: Regular rate and rhythm. No murmurs, gallops, or rubs. Respiratory: Clear to auscultation bilaterally. No wheezes or crackles. Abdomen: Bowel sounds present. Soft, nondistended, less tender in the suprapubic area and left lower quadrant without rebound tenderness or guarding. Extremities: No pedal edema. Const: Vital Signs, click to edit/add: Vital Signs - 24 hr 02/13/23 11:00 02/13/23 15:00 02/13/23 19:00 Temperature 97.5 F L 98.4 F 98.2 F Pulse Rate [Pulse Oximeter] 70 66 73 Respiratory Rate 16 16 16 Blood Pressure [Le ft Arm] 130/78 129/75 136/90 H Pulse Oximetry 95 95 95 Oxygen Delivery Me thod Room Air Room Air Room Air 02/13/23 23:00 02/14/23 02:50 02/14/23 08:42 Temperature 98.3 F 98.3 F 97.0 F L Pulse Rate [Pulse Oximeter] 69 72 65 Respiratory Rate 16 16 16 Blood Pressure [Le ft Arm] 158/84 H 125/76 138/85 Pulse Oximetry 97 97 96 Oxygen Delivery Me thod Room Air Room Air Room Air Labs Labs: Laboratory Results - last 24 hr 02/14/23 05:58 WBC 6.38 RBC 4.19 L Hgb 13.1 L Hct 39.0 MCV 93 MCH 31 MCHC 34 RDW Coeff of Khurram 11.7 Plt Count 241 Neut % (Auto) 64.9 Lymph % (Auto) 19.3 L [place] % (Auto) 11.6 H Eos % (Auto) 3.6 Baso % (Auto) 0.6 Neut # (Auto) 4.14 Lymph # (Auto) 1.20 [place] # (Auto) 0.70 Eos # (Auto) 0.23 Baso # (Auto) 0.04 Abs Immat Gran (auto) 0.00 Imm/Tot Granulo (auto) 0.0 C-Reactive Protein 17.4 H
[2023-02-14] MEDS: FLUTICASONE PROPIONATE NASAL 1 SPRAY NOSTRIL-B (09:17)
[2023-02-14 09:37] VITALS: BMI 23.6
--- NOTE | 2023-02-14 11:50 | PM.DS1 ---
DS: Providers Provider Date Seen: 02/14/23 Date of admission: 02/12/23 19:46 Primary care physician: Loco Munoz MD Admitting Clinician: Frederick Aguero MD Consults: 02/12/23 19:12 Consult to Physician [CONS] Routine Comment: Consulting Provider: Jennifer Arce Has provider been notified: Yes Attending Physician on discharge: Luz Babcock MD Date of Discharge: 02/14/23 DS: Diagnosis Discharge Diagnosis (1) Diverticulitis of colon with perforation: Status: Acute Problem details: - 02/13/[address] Arce's recommendations. Advance to clears. Monitor with labs tomorrow. If doing well, will need PICC for 7-10 days of ertapenem as outpatient. - 02/14 Doing well. Advancing diet to fulls. Getting PICC today. Tolerating fulls, Advancing to low residue and discharge home either later today on daily ertapenem if he tolerates advancing diet. (2) Essential hypertension: Status: Chronic Problem details: Fair control. Not on any medications for this. (3) Mild persistent asthma: Status: Chronic Problem details: Good control. Continue albuterol prn. DS: Summary Hospital Course Hospital Course: 48 y/o with perforated diverticulitis improving on conservative management with IV antibiotics. Dr. Arce saw patient in consultation. Please see diagnoses above for more details. Time Spent with Patient Time attestation: Total time spent providing and/or coordinating discharge services: Exam Narrative: Exam Narrative: See my progress note from today. Const: Vital Signs, click to edit/add: Vital Signs - 24 hr 02/13/23 15:00 02/13/23 19:00 02/13/23 23:00 Temperature 98.4 F 98.2 F 98.3 F Pulse Rate [Pulse Oximeter] 66 73 69 Respiratory Rate 16 16 16 Blood Pressure [Le ft Arm] 129/75 136/90 H 158/84 H Pulse Oximetry 95 95 97 Oxygen Delivery Me thod Room Air Room Air Room Air 02/14/23 02:50 02/14/23 08:42 Temperature 98.3 F 97.0 F L Pulse Rate [Pulse Oximeter] 72 65 Respiratory Rate 16 16 Blood Pressure [Le ft Arm] 125/76 138/85 Pulse Oximetry 97 96 Oxygen Delivery Me thod Room Air Room Air DS: Data Data Completed and Pending Completed studies during hospitalization: Ordering Physician: Teresa Blankenship M.D. Date of Service: 02/12/23 Procedure(s): CT abdomen pelvis w con Accession Number(s): [id number] cc: Teresa Blankenship M.D.; Loco Munoz M.D.~ For Patients: As a result of the Cures Act, medical imaging exams and procedure reports are released immediately into your electronic medical record. You may view this report before your referring provider. If you have questions, please contact your health care provider. INDICATION: Fever and lower abdominal pain TECHNIQUE: Axial images were obtained from the diaphragm to the pubic symphysis. Reformats were obtained in the coronal and sagittal plane. IV Contrast: 95 cc Isovue 370 Oral Contrast: None COMPARISON: None. FINDINGS: Lower chest: Unremarkable. Liver: Unremarkable. Normal in size and attenuation. No masses. Gallbladder and bile ducts: Unremarkable. No stones or inflammation. No biliary dilatation. Spleen: Unremarkable. Normal in size without mass. Pancreas: Unremarkable. No mass or inflammation. Adrenal glands: Unremarkable. No nodules. Kidneys: Unremarkable. No masses, stones, or hydronephrosis. Vasculature: Unremarkable. GI tract: The stomach is unremarkable. There are no dilated loops of large or small intestine. Appendix unremarkable. Underlying colonic diverticulosis with prominent inflammation adjacent to a proximal sigmoid diverticulum. Adjacent fascial thickening and trace free fluid. Trace bubbles of air within the sigmoid mesentery which appear to be just external to the inflamed diverticulum (series 2, image 127; series 4, image 52). No abscess seen. Pelvis: Unremarkable. Bones: Unremarkable for age. IMPRESSION: Acute diverticulitis proximal sigmoid colon. Small bubbles of air which appear to be extraluminal suggesting microperforation without evidence of abscess. Please note that all CT scans at this facility use dose modulation, iterative reconstruction, and/or weight-based dosing when appropriate to reduce radiation dose to as low as reasonably achievable. Dictated by Bonilla Chun MD @ 02/12/2023 6:28:00 PM (Electronically Signed) Labs on day of discharge: Labs from last 24 hours 02/14/23 05:58 WBC 6.38 RBC 4.19 L Hgb 13.1 L Hct 39.0 MCV 93 MCH 31 MCHC 34 RDW Coeff of Khurram 11.7 Plt Count 241 Neut % (Auto) 64.9 Lymph % (Auto) 19.3 L [place] % (Auto) 11.6 H Eos % (Auto) 3.6 Baso % (Auto) 0.6 Neut # (Auto) 4.14 Lymph # (Auto) 1.20 [place] # (Auto) 0.70 Eos # (Auto) 0.23 Baso # (Auto) 0.04 Abs Immat Gran (auto) 0.00 Imm/Tot Granulo (auto) 0.0 C-Reactive Protein 17.4 H Preliminary micro results at discharge 02/12/23 17:57 Blood Culture - Preliminary Blood NO GROWTH AFTER 24 HOURS 02/12/23 17:41 Blood Culture - Preliminary Blood NO GROWTH AFTER 24 HOURS Discharge Plan Discharge Disposition: Home, Self-Care Date of Admission: 02/12/23 19:46 Attending Provider on Discharge: Luz Babcock Consulting Providers: Jennifer Arce Primary Care Provider: Loco Munoz Condition: Stable Anticipated Discharge Date/Time: 02/14/23 13:00 Discharge Medications: Continued fluticasone propionate 50 mcg/actuation spray,suspension 1 spray intranasal DAILY albuterol sulfate 90 mcg/actuation HFA aerosol inhaler 2 puff inhalation Q6H PRN (Reason: Asthma) fluticasone propion-salmeterol [Advair Diskus] 250-50 mcg/dose blister with device 1 inh inhalation BID Qty: 60 5RF Discharge Orders: Discharge Order (Routine); Ordered 02/14/23 Ordered By: Luz Babcock Patient Education: Low Fiber Diet (DC), Diverticulitis Diet (DC) Additional Instructions: Infusion center for Ertapenem 1 gram IV daily. F/u with general surgery in 7 days. Activity Level: No Restrictions Discharge Diet: Low Fiber Follow Up Appointments: Loco Munoz MD [Primary Care Provider] - Forms: [employer] Info Instructions
--- NOTE | 2023-02-14 13:00 | CRLHL7_ITS ---
For Patients: As a result of the Cures Act, medical imaging exams and procedure reports are released immediately into your electronic medical record. You may view this report before your referring provider. If you have questions, please contact your health care provider. Indication: Midline placement Technique: Grayscale sonogram images of the right basilic vein submitted. IMPRESSION: Sonographic guidance for right arm midline placement. Dictated by Syed Pitt MD @ 02/19/2023 5:38:04 AM (Electronically Signed)
[2023-02-14] MEDS: ERTAPENEM 1 GM in 0.9 % SODIUM CHLORIDE Mini-bag 100 ML IVPB (13:54)
--- NOTE | 2023-02-14 13:59 | PM.GSPN ---
Subjective Subjective Date Seen: 02/14/23 Interval history: Hugh is feeling better. He has had some loose stools. Tolerating regular diet. Has been afebrile. Exam Narrative: Exam Narrative: General: No acute distress CV: Regular rate respiratory: Breathing nonlabored on room air abdomen: Soft, minimally tender in the suprapubic area. Nondistended. Const: Vital Signs, click to edit/add: Vital Signs - 24 hr 02/13/23 15:00 02/13/23 19:00 02/13/23 23:00 Temperature 98.4 F 98.2 F 98.3 F Pulse Rate [Pulse Oximeter] 66 73 69 Respiratory Rate 16 16 16 Blood Pressure [Le ft Arm] 129/75 136/90 H 158/84 H Pulse Oximetry 95 95 97 Oxygen Delivery Me thod Room Air Room Air Room Air 02/14/23 02:50 02/14/23 08:42 Temperature 98.3 F 97.0 F L Pulse Rate [Pulse Oximeter] 72 65 Respiratory Rate 16 16 Blood Pressure [Le ft Arm] 125/76 138/85 Pulse Oximetry 97 96 Oxygen Delivery Me thod Room Air Room Air Labs/Imaging Labs Labs: White blood cell count is normal. CRP is 17 from 18. Progress Note: A&P Assessment and plan (1) Diverticulitis of colon with perforation: Problem details: - 02/13/[address] Arce's recommendations. Advance to clears. Monitor with labs tomorrow. If doing well, will need PICC for 7-10 days of ertapenem as outpatient. - 02/14 Doing well. Advancing diet to fulls. Getting PICC today. Tolerating fulls, Advancing to low residue and discharge home either later today on daily ertapenem if he tolerates advancing diet. Status: Acute Plan The patient is a 48-year-old male who has perforated diverticulitis. Clinically he has improved. He is going to discharge home on 8 days of IV antibiotics. We again discussed indications for colectomy, both urgent and emergent. He knows that he should call or come in to be seen if he develops worsening pain or fever. He will follow-up in clinic next week.
== END 2023-02-14 14:47 | disposition home or self-care (01) | DRG 392 ==
LOC: ED 18:14 → MEDSURG 19:49
PROVIDERS: Admitting Provider Family Medicine; Emergency Provider Emergency Medicine; PCP Internal Medicine; Visit Provider Family Medicine
DX: K57.20 Diverticulitis of large intestine with perforation and abscess without bleeding (principal); I10 Essential (primary) hypertension; J45.30 Mild persistent asthma, uncomplicated; Z87.891 Personal history of nicotine dependence
CPT/HCPCS: 36410; 36415; 74177; 76937; 80048; 80076; 83605; 85025; 86140; 87040; 87631; 99284; A9270; J1335; J2543; J7030; J7050; J7120; Q9967

== ENCOUNTER 2023-02-22 11:00 | Outpatient (RCR) | payer OTHER, SELFPAY ==
[2023-02-15 14:00] VITALS: BP 145/82; PULSE 67; RESP 16; TEMP 35.9; O2SAT 97
[2023-02-15] MEDS: ERTAPENEM 1 GM in 0.9 % SODIUM CHLORIDE 100 ml 100 ML IVPB (14:01)
[2023-02-15] MEDS: 0.9 % SODIUM CHLORIDE 250 ml IV (14:43)
[2023-02-15] MEDS: SODIUM CHLORIDE 0.9 % (FLUSH) 10 ML SYRINGE IVF (14:43)
[2023-02-16 11:35] VITALS: BP 130/83; PULSE 76; RESP 16; TEMP 35.8; O2SAT 98
[2023-02-16] MEDS: SODIUM CHLORIDE 0.9 % (FLUSH) 10 ML SYRINGE IVF (11:52)
[2023-02-16] MEDS: ERTAPENEM 1 GM in 0.9 % SODIUM CHLORIDE 100 ml 100 ML IVPB (11:52)
[2023-02-16] MEDS: 0.9 % SODIUM CHLORIDE 250 ml IV (11:53)
--- NOTE | 2023-02-16 15:45 | ONC.NURNOTE ---
Pt states increase scrotal redness and pain. states thinks he over did it yest. pt agreed to call surgeon who saw him when previously admitted. and if he is unable to get ahold of the surgeon to call me back. no fever.
[2023-02-17 11:00] VITALS: BP 127/90; RESP 16; TEMP 35.5; O2SAT 97
[2023-02-17] MEDS: ERTAPENEM 1 GM in 0.9 % SODIUM CHLORIDE 100 ml 100 ML IVPB (11:04)
[2023-02-17] MEDS: SODIUM CHLORIDE 0.9 % (FLUSH) 10 ML SYRINGE IVF (11:05)
[2023-02-17] MEDS: 0.9 % SODIUM CHLORIDE 250 ml IV (11:05)
--- NOTE | 2023-02-17 11:20 | ONC.NURNOTE ---
States did talk to Surgeon yesturday and no concern. states feeling better today. denies pain. states diarrhea gone. states decrease groin reddness and pain.
[2023-02-18 11:00] VITALS: BP 127/83; PULSE 65; RESP 14; TEMP 35.5; O2SAT 97
[2023-02-18] MEDS: ERTAPENEM 1 GM in 0.9 % SODIUM CHLORIDE 100 ml 100 ML IVPB (11:02)
[2023-02-18] MEDS: SODIUM CHLORIDE 0.9 % (FLUSH) 10 ML SYRINGE IVF (11:03)
[2023-02-19 11:00] VITALS: BP 131/86; PULSE 59; RESP 16; TEMP 35.8; O2SAT 98
[2023-02-19] MEDS: 0.9 % SODIUM CHLORIDE 250 ml IV (11:07)
[2023-02-19] MEDS: ERTAPENEM 1 GM in 0.9 % SODIUM CHLORIDE 100 ml 100 ML IVPB (11:07)
[2023-02-19] MEDS: SODIUM CHLORIDE 0.9 % (FLUSH) 10 ML SYRINGE IVF (11:07)
[2023-02-20 10:08] VITALS: BP 127/84; PULSE 73; RESP 16; TEMP 35.7; O2SAT 99
[2023-02-20] MEDS: ERTAPENEM 1 GM in 0.9 % SODIUM CHLORIDE 100 ml 100 ML IVPB (10:20)
[2023-02-20] MEDS: 0.9 % SODIUM CHLORIDE 250 ml IV (10:21)
[2023-02-20] MEDS: SODIUM CHLORIDE 0.9 % (FLUSH) 10 ML SYRINGE IVF (10:21)
[2023-02-21 12:25] VITALS: BP 135/80; PULSE 73; RESP 16; TEMP 35.8; O2SAT 100
[2023-02-21] MEDS: ERTAPENEM 1 GM in 0.9 % SODIUM CHLORIDE 100 ml 100 ML IVPB (12:50)
[2023-02-21] MEDS: SODIUM CHLORIDE 0.9 % (FLUSH) 10 ML SYRINGE IVF ×2 (12:51→13:30)
[2023-02-21] MEDS: 0.9 % SODIUM CHLORIDE 250 ml IV (12:51)
[2023-02-21 12:58] LABS: Basophils Absolute Auto 0.02 K/uL (0.00-0.30); Basophils Percent Auto 0.4 % (0.0-3.0); Eosinophils Absolute Auto 0.28 K/uL (0.00-0.50); Eosinophils Percent Auto 5.2 % (0.0-7.0); Hematocrit 42.9 % (37.0-53.0); Hemoglobin* 14.8 gm/dL (13.5-17.5); Lymphocytes Absolute Auto 1.34 K/uL (0.90-2.90); Lymphocytes Percent Auto 24.8 % (20-44); Mean Corpuscular HGB Conc 35 gm/dL (32-36); Mean Corpuscular Hemoglobin 32 pg (26-34); Mean Corpuscular Volume 92 fL (80-100); Monocytes Percent Auto 11.3 % (0.0-11.0); Neutrophils Absolute Auto 3.15 K/uL (1.7-7.0); Neutrophils Percent Auto 58.3 % (42.0-72.0); Platelet Count* 431 K/uL (140-440); RDW Coefficient of Variation % 11.3 % (11.5-15.5); Red Blood Count 4.67 m/uL (4.30-5.90)
[2023-02-21 13:01] LABS: Slide Review Reflex No
[2023-02-21 13:26] LABS: C Reactive Protein* < 0.5 mg/dL (0.5-1.0)
[2023-02-22 11:07] VITALS: BP 146/90; PULSE 80; RESP 16; TEMP 35.8; O2SAT 100
[2023-02-22] MEDS: ERTAPENEM 1 GM in 0.9 % SODIUM CHLORIDE 100 ml 100 ML IVPB (11:36)
[2023-02-22] MEDS: 0.9 % SODIUM CHLORIDE 250 ml IV (11:36)
[2023-02-22] MEDS: SODIUM CHLORIDE 0.9 % (FLUSH) 10 ML SYRINGE IVF (11:36)
== END 2023-08-14 23:59 | disposition home or self-care (01) ==
LOC: CCIC 11:00
PROVIDERS: PCP Internal Medicine; Referring Provider Internal Medicine; Visit Provider Internal Medicine
DX: K57.20 Diverticulitis of large intestine with perforation and abscess without bleeding (principal)
CPT/HCPCS: 36415; 36589; 36592; 85025; 86140; 96365; 99211; A4221; J1335; J7050

== ENCOUNTER 2023-10-04 08:27 | Outpatient (CLI) | payer OTHER, SELFPAY | END 2023-10-04 08:28 | disposition home or self-care (01) | LOC: NFLDREF 10-08 14:31 | PROVIDERS: PCP Internal Medicine; Referring Provider Internal Medicine; Visit Provider Internal Medicine | DX: I10 Essential (primary) hypertension (principal); Z13.220 Encounter for screening for lipoid disorders; Z12.5 Encounter for screening for malignant neoplasm of prostate | CPT/HCPCS: 80053; 80061; G0103 ==

== ENCOUNTER 2024-03-24 07:39 | Outpatient (CLI) | payer OTHER, SELFPAY ==
--- NOTE | 2024-03-24 08:00 | CRLHL7_ITS ---
For Patients: As a result of the Century Cures Act, medical imaging exams and procedure reports are released immediately into your electronic medical record. You may view this report before your referring provider. If you have questions, please contact your health care provider. Indication: INTERMITTENT PAIN IN LLQ AND RLQ THAT EXTEND TO INGUINAL CANAL. HX OF DIVERTICULITIS Technique: CT Abdomen/Pelvis 96CC ISOVUE 370 AND WATER PREP Please note that all CT scans at this facility use dose modulation, iterative reconstruction, and/or weight-based dosing when appropriate to reduce radiation dose to as low as reasonably achievable. Comparison: 02.12.23 Findings: Lung bases clear. Stable subcentimeter cyst in the right hepatic lobe. Normal adrenal glands. Normal kidneys. Incidental extrarenal pelvis bilaterally. Normal spleen and pancreas. Gallbladder unremarkable. No bowel obstruction. Sigmoid diverticulosis. No acute inflammation. No free air or free fluid. No abscess. Normal bladder and ureters. No adenopathy. No fracture. Small left inguinal hernia containing fat. Impression: Chronic sigmoid diverticulosis. No acute diverticulitis. A small left inguinal hernia is present containing fat measuring 1.5 cm Please note that all CT scans at this facility use dose modulation, iterative reconstruction, and/or weight-based dosing when appropriate to reduce radiation dose to as low as reasonably achievable. Dictated by Syed Pitt MD @ 03/24/2024 10:03:03 AM (Electronically Signed)
== END 2024-03-24 07:40 | disposition home or self-care (01) ==
LOC: CT 07:39
PROVIDERS: PCP Internal Medicine; Visit Provider Internal Medicine
DX: R10.32 Left lower quadrant pain (principal); K57.30 Diverticulosis of large intestine without perforation or abscess without bleeding; K40.90 Unilateral inguinal hernia, without obstruction or gangrene, not specified as recurrent
CPT/HCPCS: 74177; Q9967

== ENCOUNTER 2025-01-28 08:52 | Outpatient (CLI) | payer OTHER, SELFPAY | END 2025-01-28 08:53 | disposition home or self-care (01) | PROVIDERS: PCP Internal Medicine; Visit Provider Internal Medicine | DX: I10 Essential (primary) hypertension (principal) | CPT/HCPCS: 80053; 80061 ==